=== PATIENT | male | born 1990 | race Caucasian/White ===

== ENCOUNTER 2020-12-14 18:54 | Emergency (ER) | payer OTHER, SELFPAY ==
[2020-12-14 19:01] VITALS: BP 127/74; PULSE 103; RESP 14; TEMP 37.5; O2SAT 98
--- NOTE | 2020-12-14 19:46 | ED.URI ---
HPI - URI/Sore Throat General Chief Complaint: Upper Respiratory Infection Stated Complaint: cough,sore throat History of Present Illness HPI Narrative: This is a 30-year-old male comes in complaining of a cough not feeling well states that he has been exposed to Covid. Patient states he has body aches and he feels like he has the flu patient says that he is sleeping a lot and he feels weak and he wants to make sure that everything is okay with him Related Data Allergies Allergy/AdvReac Type Severity Reaction Status Date / Time No Known Allergies Allergy Verified 12/17/20 09:52 Review of Systems Review of Systems: CONSTITUTIONAL: Reports fever, chills, or sweats. EYES: Denies visual changes, redness, or discharge. ENT: Reports rhinorrhea, congestion, sore throat, or otalgia. CARDIOVASCULAR:Denies chest pain, palpitations, or edema. RESPIRATORY: Reports cough or dyspnea. GASTROINTESTINAL: Denies abdominal pain, nausea, vomiting, or diarrhea. GENITOURINARY: Denies dysuria or hematuria. SKIN:[Denies rash or itching. MUSCULOSKELETAL:Denies back pain, joint pain, or myalgia. NEUROLOGIC: Denies headache, numbness, or weakness. PSYCHIATRIC:Denies anxiety or depression PMFSH Social History Social History Smoking status: Never smoker Spiritual care concerns: No Comments At time as signature, I have reviewed and agree with nursing past medical, social, surgical and family history. Please see nursing chart for further information. There is no relevant family history pertinent to the presenting complaint. Exam Narrative: GENERAL: Ill appearing, well-nourished, and in no acute distress. HEAD:Normocephalic, atraumatic. EYES: PERRLA and EOMI. ENT: Nares clear, moderate rhinorrhea or epistaxis. Mucous membranes moist. Pharyngeal erythema NECK: Supple. CHEST: Clear to auscultation. No respiratory distress. HEART: Slightly tachycardic regular rate and rhythm. . Normal peripheral pulses. ABDOMEN: Soft, nontender, nondistended, normal active bowel sounds. EXTREMITIES: Normal range of motion. No edema. SKIN: Warm, dry, no rash. NEURO: No focal deficits. Alert and oriented x3. 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 Vital Signs Vital signs: Vital Signs Temperature 99.5 F 12/14/20 19:01 Pulse Rate 103 H 12/14/20 19:01 Respiratory Rate 14 12/14/20 19:01 Blood Pressure 127/74 12/14/20 19:01 Pulse Oximetry 98 12/14/20 19:01 Temperature 99.5 F 12/14/20 19:01 Pulse Rate 103 H 12/14/20 19:01 Respiratory Rate 14 12/14/20 19:01 Blood Pressure 127/74 12/14/20 19:01 Pulse Oximetry 98 12/14/20 19:01 MDM - URI/Sore Throat Differential Diagnosis Differential diagnosis: Likely upper respiratory infection, bronchitis, pharyngitis and other Lab Data Labs: Lab Results 12/14/20 Range/Units 19:15 POC SARS CoV-2 Ag Positive (Negative) Influenza A Screen Negative Reference Range: Negative Influenza B Screen Negative Reference Range: Negative Strep Screen Presumptive Negative *(Reference Range: Negative)* Strep Screen Presumptive Negative *(Reference Range: Negative)* Discharge Plan Discharge Clinical Impression: COVID-19 Patient Disposition: Home, Self-Care Condition: Stable Instructions: Antibiotic Form, COVID-19 (Coronavirus Disease 2019) (ED), COVID-19 and Children (ED) Additional Instructions: Viral illness may last between 7-12days; antibiotic is NOT recommended at this time. Recommend antihistamine such as Benadryl at night time and Claritin/Zyrtec/Mariah during the day Also, recommend symptomatic treatment includes: rest, fluids, and increase humidity of the air at home. Recommend Acetaminophen or nonsteroidal anti-inflammator
== END 2020-12-14 19:55 | disposition home or self-care (01) ==
PROVIDERS: Emergency Provider Nurse Practitioner Family
DX: U07.1 COVID-19 (principal)
CPT/HCPCS: 87081; 87426; 87804; 87880; 99213; C9803; G0463

== ENCOUNTER 2020-12-17 07:41 | Outpatient (RCR) | payer OTHER, SELFPAY ==
[2020-12-17] MEDS: ACETAMINOPHEN 325 MG TABLET 650 MG PO (09:39)
[2020-12-17] MEDS: diphenhydrAMINE HCl CAP 25 MG CAPSULE PO (09:39)
[2020-12-17] MEDS: FAMOTIDINE 20 MG TABLET PO (09:39)
[2020-12-17 09:48] VITALS: BP 117/60; PULSE 84; RESP 18; TEMP 36.7; O2SAT 97
[2020-12-17 10:49] VITALS: BP 110/62
--- NOTE | 2020-12-18 13:33 | PC.NURSE ---
talked to patient, he is felling better. He had no concerns or questions.
== END 2020-12-17 15:24 | disposition home or self-care (01) ==
LOC: AMCINF 07:41
PROVIDERS: PCP Pediatrics; Referring Provider Pediatrics; Visit Provider Internal Medicine Hematology & Oncology
DX: Z23 Encounter for immunization (principal); U07.1 COVID-19
CPT/HCPCS: A9270; J7050; M0243